=== PATIENT | male | born 1945 | race Caucasian/White ===

== ENCOUNTER → 2017-02-05 | Outpatient (CLI) | payer MEDICARE ==
[~2017-02-05] MED LIST: ASPI-555 PO; DICL2100G TP; GLIM4TAB3 PO; GLUC1CAP14 PO; HYDR-4068 PO; IBUP-2077 PO; ISOS30TA6 PO; LISI-613 PO; LORA2TAB2 PO; LOSA25TA21 PO; MECL-111 PO; METF10004 PO; METO-408 PO; NITR0.3T11 SL; OMEP40CA37 PO; REGADENOSON 0.4 MG/5 ML PF SYG IVP SCH; SIMV40TA5 PO; TERBINAFINE TP; TRIAMCINOLONE TP
== END | disposition home or self-care (01) ==
LOC: SHCH 08:02
PROVIDERS: ATTEND Internal Medicine Cardiovascular Disease
DX: R07.9 Chest pain, unspecified (principal)
CPT/HCPCS: 78452; 93017; 96374; A9500 ×2; J2785

== ENCOUNTER → 2017-02-27 | Outpatient (CLI) | payer MEDICARE ==
[~2017-02-27] MED LIST changes: -REGADENOSON 0.4 MG/5 ML PF SYG IVP SCH
== END | disposition home or self-care (01) ==
LOC: RAH 10:43
PROVIDERS: ATTEND Physician Assistant Medical
DX: M19.071 Primary osteoarthritis, right ankle and foot (principal)
CPT/HCPCS: 73630

== ENCOUNTER 2017-03-18 05:39 | Day surgery (SDC) | payer MEDICARE ==
[2017-03-16 11:34] LABS: APPEARANCE,URINE Clear (CLEAR); BILIRUBIN,URINE Negative (NEGATIVE); COLOR,URINE Yellow (YELLOW); GLUCOSE, URINE (UA) Negative (NEGATIVE); KETONES,URINE Negative (NEGATIVE); LEUKOCYTE ESTERASE ,URINE Negative (NEGATIVE); NITRATE,URINE Negative (NEGATIVE); OCCULT BLOOD,URINE Negative (NEGATIVE); PH,URINE 7.5 (5.0-8.0); PROTEIN,URINE Negative (NEGATIVE)
[2017-03-16 11:39] LABS: CREATININE 0.9 mg/dL (0.5-1.5); POTASSIUM 4.4 mmol/L (3.5-5.1)
[2017-03-16 11:41] LABS: INR 1.03 (0.85-1.15); PARTIAL THROMBOPLASTIN TIME 26.3 SEC (26.3-35.5); PROTHROMBIN TIME 10.8 SEC (9.6-11.6)
[2017-03-16 11:44] LABS: BASOPHILS % (AUTO) 0.6 % (0.0-5.0); EOSINOPHILS % (AUTO) 4.9 % (0.0-8.0); HEMATOCRIT 43.3 % (42-54); LYMPHOCYTES % (AUTO) 24.2 % (21.0-51.0); MEAN CORPUSCULAR HEMOGLOBIN 29.9 pg (27.0-33.0); MEAN CORPUSCULAR HGB CONC 33.9 g/dL (32.0-36.0); MEAN CORPUSCULAR VOLUME 88.1 fL (79-99); MONOCYTES % (AUTO) 7.8 % (3.0-13.0); NEUTROPHILS % (AUTO) 62.5 % (40.0-77.0); PLATELET COUNT (AUTO) 252 K/uL (130-400); RED BLOOD CELL COUNT(AUTO) 4.91 MIL/uL (4.50-6.20); RED CELL DISTRIBUTION WIDTH 12.9 % (11.0-15.5); WHITE BLOOD COUNT (AUTO) 6.6 K/uL (4.8-10.8)
[2017-03-16 11:47] VITALS: BP 145/78
[2017-03-18] VITALS (24 sets, daily range): BP systolic 128–154; BP diastolic 67–87
[~2017-03-18] VITALS: Ht 190.5 cm; Wt 110.2 kg
[~2017-03-18 05:39] MED LIST changes: -METO-408 PO; +SODIUM CHLORIDE 0.9% 500ML 500 ML IV SCH
[2017-03-18] MEDS ORDERED: HEPARIN SODIUM 1000UNIT/ML 10ML VIAL ONE (08:15)
[2017-03-18] MEDS ORDERED: LIDOCAINE HCL 2% 20ML ONE (08:15)
[2017-03-18] MEDS ORDERED: IOPAMIDOL-370 100 ML VIAL IV ONE (08:15)
[2017-03-18] MEDS ORDERED: ISOVUE-370 50ML VIAL IV ONE (08:15)
[2017-03-18] MEDS ORDERED: MIDAZOLAM HCL 1 MG/ML 2ML VIAL ONE (08:49)
[2017-03-18] MEDS ORDERED: METO-408 PO ×2 (09:23)
[2017-03-18] MEDS ORDERED: GLUCAGON 1MG KIT 1 MG ML IM PRN (09:30)
[2017-03-18] MEDS ORDERED: DEXTROSE 50%-WATER 50 ML DISP.SYRIN IV PRN (09:30)
[2017-03-18] MEDS ORDERED: MORPHINE SULFATE 2 MG/ML 1ML SYG ONE (10:01)
[2017-03-18] MEDS ORDERED: ATROPINE SULFATE 0.1 MG/ML 10 ML SYG IVP ONE (10:21)
[2017-03-18] MEDS ORDERED: MORPHINE SULFATE 2 MG/ML 1ML SYG IVP SCH (10:45)
[2017-03-18] MEDS ORDERED: METOPROLOL TARTRATE 1 MG/ML 5ML VIAL IV ONE (12:37)
== END 2017-03-18 15:45 | disposition home or self-care (01) ==
LOC: DAH 05:39
PROVIDERS: ATTEND Internal Medicine Cardiovascular Disease
DX: I25.119 Atherosclerotic heart disease of native coronary artery with unspecified angina pectoris (principal); I10 Essential (primary) hypertension; E78.5 Hyperlipidemia, unspecified; E11.9 Type 2 diabetes mellitus without complications; M54.5 Low back pain; Z88.8 Allergy status to other drugs, medicaments and biological substances; Z68.32 Body mass index [BMI] 32.0-32.9, adult; Z79.84 Long term (current) use of oral hypoglycemic drugs; Z79.899 Other long term (current) drug therapy
CPT/HCPCS: 36415; 71045; 80048; 81003; 82948 ×2; 85025; 85610; 85730; 93005; 93458; C1894; J1644; J2250; J3490 ×2; J7040; Q9967 ×2; J0461